=== PATIENT | female | born 1945 | race Caucasian/White ===

== ENCOUNTER 2024-02-12 14:13 | Inpatient (IN) ==
[2024-02-12] MEDS ORDERED: IOPAMIDOL 100 ML BOTTLE IV ONE (14:14)
[2024-02-12] MEDS: 0.9 % SODIUM CHLORIDE 1,000 ML IV ONE (14:31)
[2024-02-12] MEDS: KETOROLAC 15 MG/ML VIAL IV ONE (14:31)
[2024-02-12] MEDS: ACETAMINOPHEN 1,000 MG/100 ML BAG IV ONE (14:34)
[2024-02-12 14:50] LABS: Basophils # (Auto) 0.01 K/mcL (0.00-0.30); Basophils % (Auto) 0 % (0.0-2.0); Eosinophils # (Auto) 0 K/mcL (0.00-0.70); Eosinophils % (Auto) 0 % (0.0-7.0); Hematocrit 43.9 % (34.1-44.9); Hemoglobin 14.6 g/dL (11.2-15.7); Lymphocytes # (Auto) 0.54 K/mcL (1.50-4.80); Lymphocytes % (Auto) 2.4 % (15.5-49.0); Mean Cell Volume 88.5 fL (80.0-100.0); Mean Corpuscular HGB Conc 33.3 g/dL (31.0-36.0); Mean Platelet Volume 11.6 fL (8.8-12.5); Monocytes # (Auto) 0.68 K/mcL (0.10-0.90); Neutrophils % (Auto) 87.6 % (38.0-78.0); Platelet Count 105 K/mcL (140-440); RBC 4.96 M/mcL (3.59-5.38); Red Cell Distribution Width 14.4 % (11.5-14.5); WBC 22.9 K/mcL (4.5-11.0)
[2024-02-12 15:20] LABS: ALT/SGPT 22 U/L (<40); AST/SGOT 25 U/L (<32); Alkaline Phosphatase 73 U/L (39-117); Bilirubin,Total 0.9 mg/dL (0.1-1.0); Blood Urea Nitrogen 28 mg/dL (8-23); Calcium 9.7 mg/dL (8.6-10.4); Carbon Dioxide 25 mmol/L (22-30); Chloride 95 mmol/L (96-108); Globulin 3.9 gm/dL (2.2-3.7); Glomerular Filtration Rate 39; Glucose 172 mg/dL (70-105); Potassium 3.2 mmol/L (3.3-5.1); Sodium 139 mmol/L (133-145)
[2024-02-12] MEDS: CEFEPIME 1 GM VIAL IV ONE (15:21)
[2024-02-12] MEDS: OSELTAMIVIR PHOSPHATE 75 MG CAPSULE PO ONE (15:21)
[2024-02-12] MEDS: 0.9 % SODIUM CHLORIDE 1,780 ML IV ONE (15:33)
[2024-02-12] MEDS: VANCOMYCIN 1,500 MG in 0.9 % SODIUM CHLORIDE 500 ML IV ONE (15:33)
[2024-02-12] MEDS ORDERED: SENNOSIDES 1 TABLET PO PRN (19:18)
[2024-02-12] MEDS ORDERED: METOCLOPRAMIDE 10 MG/2 ML VIAL IV PRN (19:18)
[2024-02-12] MEDS ORDERED: MAGNESIUM SULFATE 2 GM/50 ML BAG IV PRN (19:18)
[2024-02-12] MEDS ORDERED: POTASSIUM CHLORIDE 40 MEQ in DEXTROSE 5% IN WATER 500 ML IV PRN (19:18)
[2024-02-12] MEDS ORDERED: POLYETHYLENE GLYCOL 3350 17 GM PACKET PO PRN (19:18)
[2024-02-12] MEDS ORDERED: ONDANSETRON 4 MG/2 ML VIAL IV PRN (19:18)
[2024-02-12] MEDS ORDERED: POTASSIUM CHLORIDE 20 MEQ TABLET PO PRN ×2 (19:18)
[2024-02-12] MEDS: 0.9 % SODIUM CHLORIDE 10 ML SYRINGE IV SCH (20:29)
[2024-02-12] MEDS: ENOXAPARIN 40 MG/0.4 ML SYRINGE SQ SCH (20:29)
[2024-02-12] MEDS: DOCUSATE SODIUM 100 MG CAPSULE PO SCH (20:29)
[2024-02-12] MEDS: AZITHROMYCIN 500 MG in 0.9 % SODIUM CHLORIDE 250 ML IV SCH (20:29)
[2024-02-12] MEDS: AZITHROMYCIN 500 MG in 0.9 % SODIUM CHLORIDE 250 ML IV ONE (20:43)
[2024-02-12] MEDS: cefTRIAXone 2 GM in DEXTROSE 5% IN WATER 50 ML IV SCH (21:27)
[2024-02-13] MEDS: OSELTAMIVIR PHOSPHATE 30 MG CAPSULE PO ONE (00:13)
[2024-02-13] MEDS: OSELTAMIVIR PHOSPHATE 30 MG CAPSULE PO SCH (00:13)
[2024-02-13 06:38] LABS: Basophils # (Auto) 0.01 K/mcL (0.00-0.30); Basophils % (Auto) 0.1 % (0.0-2.0); Eosinophils # (Auto) 0 K/mcL (0.00-0.70); Eosinophils % (Auto) 0 % (0.0-7.0); Hematocrit 37.5 % (34.1-44.9); Hemoglobin 12.4 g/dL (11.2-15.7); Lymphocytes # (Auto) 0.96 K/mcL (1.50-4.80); Lymphocytes % (Auto) 5.2 % (15.5-49.0); Mean Cell Volume 88.9 fL (80.0-100.0); Mean Corpuscular HGB Conc 33.1 g/dL (31.0-36.0); Mean Platelet Volume 12.1 fL (8.8-12.5); Monocytes # (Auto) 0.45 K/mcL (0.10-0.90); Monocytes % (Auto) 2.4 % (1.0-12.0); Neutrophils % (Auto) 88.2 % (38.0-78.0); Platelet Count 114 K/mcL (140-440); RBC 4.22 M/mcL (3.59-5.38); Red Cell Distribution Width 14.8 % (11.5-14.5); WBC 18.4 K/mcL (4.5-11.0)
[2024-02-13 07:06] LABS: ALT/SGPT 18 U/L (<40); AST/SGOT 21 U/L (<32); Albumin 3.2 gm/dL (3.2-5.2); Albumin/Globulin Ratio 0.9 (1.0-2.3); Alkaline Phosphatase 62 U/L (39-117); Bilirubin,Direct 0.3 mg/dL (<0.3); Bilirubin,Total 0.6 mg/dL (0.1-1.0); Blood Urea Nitrogen 34 mg/dL (8-23); Calcium 8.9 mg/dL (8.6-10.4); Carbon Dioxide 26 mmol/L (22-30); Chloride 103 mmol/L (96-108); Globulin 3.4 gm/dL (2.2-3.7); Glomerular Filtration Rate 47; Glucose 127 mg/dL (70-105); Lactate Dehydrogenase 134 U/L (135-225); Phosphorous 1.7 mg/dL (2.5-4.5); Potassium 3.2 mmol/L (3.3-5.1); Sodium 142 mmol/L (133-145); Triglycerides 96 mg/dL (<150); Uric Acid 6.1 mg/dL (2.5-8.0)
[2024-02-13] MEDS: NEUTRA PHOS 1 PACKET PO SCH (09:18)
[2024-02-13] MEDS ORDERED: METHOCARBAMOL 500 MG TABLET PO PRN (10:51)
[2024-02-13 14:28] LABS: Appearance,Urine CLOUDY (Clear); Bilirubin,Urine Negative (Negative); Color,Urine AMBER; Glucose,Urine (UA) Negative (Negative); Ketones,Urine Negative (Negative); Leukocyte Esterase,Urine Negative /uL (Negative); Mucus,Urine FEW /hpf; Nitrate,Urine Negative (Negative); Protein,Urine 100 mg/dL (Negative); Specific Gravity,Urine 1.033 (1.000-1.035); Urine Budding Yeast MOD /hpf; Urine Hyaline Cast 2 /lph (0-2); Urine RBC 4 /hpf (0-3); Urine Squamous Epithelial Cell 0 /hpf (0-4); Urine WBC 6 /hpf (0-4); Urobilinogen,Urine Negative
[2024-02-13] MEDS: ACETAMINOPHEN 325 MG TABLET PO PRN (16:13)
[2024-02-13] MEDS: CYCLOBENZAPRINE 10 MG TABLET PO SCH (20:18)
[2024-02-14 06:18] LABS: Basophils # (Auto) 0.01 K/mcL (0.00-0.30); Basophils % (Auto) 0.1 % (0.0-2.0); Eosinophils # (Auto) 0.08 K/mcL (0.00-0.70); Eosinophils % (Auto) 0.6 % (0.0-7.0); Hematocrit 34.9 % (34.1-44.9); Hemoglobin 11.6 g/dL (11.2-15.7); Lymphocytes % (Auto) 9.7 % (15.5-49.0); Mean Cell Volume 88.8 fL (80.0-100.0); Mean Corpuscular HGB Conc 33.2 g/dL (31.0-36.0); Mean Platelet Volume 12.1 fL (8.8-12.5); Monocytes # (Auto) 0.54 K/mcL (0.10-0.90); Monocytes % (Auto) 4.4 % (1.0-12.0); Neutrophils % (Auto) 84.3 % (38.0-78.0); Platelet Count 117 K/mcL (140-440); RBC 3.93 M/mcL (3.59-5.38); Red Cell Distribution Width 14.7 % (11.5-14.5); WBC 12.4 K/mcL (4.5-11.0)
[2024-02-14 06:45] LABS: ALT/SGPT 53 U/L (<40); AST/SGOT 67 U/L (<32); Albumin/Globulin Ratio 0.9 (1.0-2.3); Alkaline Phosphatase 66 U/L (39-117); Bilirubin,Direct 0.4 mg/dL (<0.3); Bilirubin,Total 0.7 mg/dL (0.1-1.0); Blood Urea Nitrogen 20 mg/dL (8-23); Calcium 8.6 mg/dL (8.6-10.4); Carbon Dioxide 24 mmol/L (22-30); Chloride 101 mmol/L (96-108); Globulin 3.3 gm/dL (2.2-3.7); Glomerular Filtration Rate 60; Glucose 108 mg/dL (70-105); Lactate Dehydrogenase 130 U/L (135-225); Phosphorous 2.4 mg/dL (2.5-4.5); Potassium 3.3 mmol/L (3.3-5.1); Sodium 139 mmol/L (133-145); Triglycerides 118 mg/dL (<150); Uric Acid 5.7 mg/dL (2.5-8.0)
[2024-02-14] MEDS: LEVOTHYROXINE 125 MCG TABLET PO SCH (07:50)
[2024-02-14] MEDS: VENLAFAXINE 75 MG CAP.XL.24H PO SCH (10:03)
[2024-02-14] MEDS: PRIMIDONE 50 MG TABLET PO SCH (15:06)
[2024-02-14] MEDS: IPRATROPIUM/ALBUTEROL 3 ML AMPUL.NEB NEB PRN (18:14)
[2024-02-15 06:55] LABS: Basophils # (Auto) 0.04 K/mcL (0.00-0.30); Basophils % (Auto) 0.5 % (0.0-2.0); Eosinophils # (Auto) 0.06 K/mcL (0.00-0.70); Eosinophils % (Auto) 0.7 % (0.0-7.0); Hematocrit 34.8 % (34.1-44.9); Hemoglobin 11.3 g/dL (11.2-15.7); Lymphocytes # (Auto) 1.05 K/mcL (1.50-4.80); Lymphocytes % (Auto) 12.6 % (15.5-49.0); Mean Cell Volume 88.8 fL (80.0-100.0); Mean Corpuscular HGB Conc 32.5 g/dL (31.0-36.0); Mean Platelet Volume 11.8 fL (8.8-12.5); Monocytes % (Auto) 8.4 % (1.0-12.0); Neutrophils % (Auto) 75.4 % (38.0-78.0); Platelet Count 126 K/mcL (140-440); RBC 3.92 M/mcL (3.59-5.38); Red Cell Distribution Width 14.9 % (11.5-14.5); WBC 8.3 K/mcL (4.5-11.0)
[2024-02-15 07:14] LABS: ALT/SGPT 69 U/L (<40); AST/SGOT 54 U/L (<32); Albumin 3.1 gm/dL (3.2-5.2); Albumin/Globulin Ratio 0.9 (1.0-2.3); Alkaline Phosphatase 74 U/L (39-117); Bilirubin,Direct 0.3 mg/dL (<0.3); Bilirubin,Total 0.6 mg/dL (0.1-1.0); Blood Urea Nitrogen 14 mg/dL (8-23); Calcium 8.8 mg/dL (8.6-10.4); Carbon Dioxide 25 mmol/L (22-30); Chloride 100 mmol/L (96-108); Globulin 3.5 gm/dL (2.2-3.7); Glomerular Filtration Rate 69; Glucose 116 mg/dL (70-105); Lactate Dehydrogenase 119 U/L (135-225); Phosphorous 3.3 mg/dL (2.5-4.5); Potassium 3.5 mmol/L (3.3-5.1); Sodium 138 mmol/L (133-145); Triglycerides 112 mg/dL (<150); Uric Acid 5.4 mg/dL (2.5-8.0)
[2024-02-15] MEDS: FUROSEMIDE 20 MG TABLET PO SCH (08:45)
[2024-02-15] MEDS: TRIAMTERENE/HYDROCHLOROTHIAZID 1 CAP CAPSULE PO SCH (10:13)
== END 2024-02-15 01:00 | DRG 871 ==
LOC: ED 14:13 → MEDSUR 19:19
PROVIDERS: ADMIT Internal Medicine; ATTEND Internal Medicine